=== PATIENT | male | born 2000 | race Two or more races ===

== ENCOUNTER 2021-04-13 09:18 | Emergency (ER) | payer MEDICAID ==
[~2021-04-13] VITALS: Ht 190.5 cm; Wt 83.6 kg
[~2021-04-13 09:18] MED LIST: ACET-2247 PO; CIPR250T6 PO; METR500 PO
[2021-04-13] MEDS ORDERED: ONDANSETRON HCL 4 MG/2 ML VIAL IVP ONE (10:00)
[2021-04-13] MEDS ORDERED: SODIUM CHLORIDE 0.9% 1,000 ML IV ONE (10:00)
[2021-04-13 10:17] LABS: BASOPHILS % (AUTO) 0.4 % (0.0-2.0); EOSINOPHILS % (AUTO) 0.2 % (1.0-6.0); HEMATOCRIT 45.8 % (41-53); HEMOGLOBIN 15.9 g/dL (13.5-17.5); LYMPHOCYTES # (AUTO) 1.6 K/uL (1.0-4.8); LYMPHOCYTES % (AUTO) 18.9 % (22.0-44.0); MEAN CORPUSCULAR HEMOGLOBIN 30.6 pg (26.0-34.0); MEAN CORPUSCULAR HGB CONC 34.7 G/dL (31.0-37.0); MEAN CORPUSCULAR VOLUME 88 fL (80-100); MONOCYTES # (AUTO) 0.4 K/uL (0.1-1.0); MONOCYTES % (AUTO) 4.8 % (2.0-9.0); NEUTROPHILS # (AUTO) 6.4 K/uL (1.8-7.7); NEUTROPHILS % (AUTO) 75.7 % (40.0-70.0); PLATELET COUNT (AUTO) 256 K/uL (150-450); RED BLOOD CELL COUNT(AUTO) 5.19 MIL/uL (4.50-5.90); RED CELL DISTRIBUTION WIDTH 12.5 % (11.5-14.5)
[2021-04-13 10:29] LABS: ANION GAP 17 mmol/L (8-16); CALCIUM, TOTAL 9.6 mg/dL (8.8-10.5); CARBON DIOXIDE 22 mmol/L (22-29); CHLORIDE 101 mmol/L (98-107); CREATININE 1.05 mg/dL (0.60-1.30); GLOMERULAR FILTR. RATE CALC > 60 mL/min (>60); GLUCOSE,RANDOM 101 mg/dL (70-110); POTASSIUM 4.2 mmol/L (3.5-5.1); SODIUM SERUM 140 mmol/L (136-145); UREA NITROGEN, BLOOD 15 mg/dL (7-18)
[2021-04-13 10:34] LABS: ALANINE AMINOTRANSFERASE 23 U/L (12-78); ALKALINE PHOSPHATASE 69 U/L (46-116); ASPARTATE AMINOTRANSFERASE 19 U/L (15-37); TOTAL PROTEIN, SERUM 8.5 g/dL (6.4-8.2)
[2021-04-13 10:43] VITALS: BP 137/78
== END 2021-04-13 10:49 | disposition home or self-care (01) ==
LOC: EMS 09:44
DX: R11.2 Nausea with vomiting, unspecified (principal); R10.84 Generalized abdominal pain
CPT/HCPCS: 36415; 80053; 85025; 96361; 96374; 99283; J2405

== ENCOUNTER 2021-04-15 14:38 | Emergency (ER) | payer MEDICAID ==
[~2021-04-15] VITALS: Ht 190.5 cm; Wt 83.6 kg
[2021-04-15 14:45] VITALS: BP 125/89
== END 2021-04-15 19:30 | disposition left against medical advice (07) ==
LOC: EMS 14:38
DX: R11.2 Nausea with vomiting, unspecified (principal); Z53.21 Procedure and treatment not carried out due to patient leaving prior to being seen by health care provider

== ENCOUNTER 2021-07-25 10:21 | Emergency (ER) | payer MEDICAID ==
[~2021-07-25] VITALS: Ht 188 cm; Wt 72.7 kg
[2021-07-25 10:52] LABS: BASOPHILS % (AUTO) 0.6 % (0.0-2.0); EOSINOPHILS % (AUTO) 0.1 % (1.0-6.0); HEMATOCRIT 46.1 % (41-53); HEMOGLOBIN 16.1 g/dL (13.5-17.5); LYMPHOCYTES # (AUTO) 1.4 K/uL (1.0-4.8); LYMPHOCYTES % (AUTO) 22.4 % (22.0-44.0); MEAN CORPUSCULAR HEMOGLOBIN 31.1 pg (26.0-34.0); MEAN CORPUSCULAR VOLUME 89 fL (80-100); MONOCYTES # (AUTO) 0.2 K/uL (0.1-1.0); MONOCYTES % (AUTO) 3.8 % (2.0-9.0); NEUTROPHILS # (AUTO) 4.5 K/uL (1.8-7.7); NEUTROPHILS % (AUTO) 73.1 % (40.0-70.0); PLATELET COUNT (AUTO) 254 K/uL (150-450); RED BLOOD CELL COUNT(AUTO) 5.18 MIL/uL (4.50-5.90); RED CELL DISTRIBUTION WIDTH 12.7 % (11.5-14.5)
[2021-07-25] MEDS ORDERED: SODIUM CHLORIDE 0.9% 1,000 ML IV ONE (11:00)
[2021-07-25] MEDS ORDERED: ONDANSETRON HCL 4 MG/2 ML VIAL IVP ONE (11:00)
[2021-07-25 11:02] LABS: ANION GAP 11 mmol/L (8-16); CALCIUM, TOTAL 10.3 mg/dL (8.8-10.5); CARBON DIOXIDE 28 mmol/L (22-29); CHLORIDE 104 mmol/L (98-107); CREATININE 1.12 mg/dL (0.60-1.30); GLOMERULAR FILTR. RATE CALC > 60 mL/min (>60); GLUCOSE,RANDOM 106 mg/dL (70-110); POTASSIUM 3.9 mmol/L (3.5-5.1); SODIUM SERUM 143 mmol/L (136-145); UREA NITROGEN, BLOOD 13 mg/dL (7-18)
[2021-07-25 11:47] LABS: ALANINE AMINOTRANSFERASE 24 U/L (12-78); ALBUMIN 4.9 g/dL (3.4-5.0); ALKALINE PHOSPHATASE 67 U/L (46-116); ASPARTATE AMINOTRANSFERASE 16 U/L (15-37); BILIRUBIN,TOTAL 0.7 mg/dL (0.1-1.0); CREATINE KINASE, TOTAL ONLY 124 U/L (39-308); LIPASE 109 U/L (73-393); TOTAL PROTEIN, SERUM 8.6 g/dL (6.4-8.2)
[2021-07-25 12:13] LABS: APPEARANCE,URINE CLEAR (CLEAR); GLUCOSE, URINE (UA) 100 mg/dL (NEGATIVE); KETONES,URINE >=80 mg/dL (NEGATIVE); LEUKOCYTE ESTERASE ,URINE NEGATIVE (NEGATIVE); NITRATE,URINE NEGATIVE (NEGATIVE); OCCULT BLOOD,URINE NEGATIVE (NEGATIVE); PH,URINE 6.5 (5.0-8.0); PROTEIN,URINE TRACE (NEGATIVE); UROBILINOGEN,URINE 0.2 mg/dL (<=1.0)
[2021-07-25 12:16] LABS: BILIRUBIN,URINE PRELIM. POSITIVE (NEGATIVE)
[2021-07-25 12:18] LABS: BACTERIA,URINE None Seen /HPF (None Seen); RBC,URINE 0-2 /HPF (0-2); WBC,URINE None Seen /HPF (0-5)
[2021-07-25 12:52] LABS: COVID AG,FIA SOURCE NASOPHARYNGEAL
[2021-07-25 13:23] VITALS: BP 106/77
== END 2021-07-25 13:26 | disposition home or self-care (01) ==
LOC: EMS 10:24
DX: R11.2 Nausea with vomiting, unspecified (principal); F12.90 Cannabis use, unspecified, uncomplicated; Z20.822 Contact with and (suspected) exposure to COVID-19
CPT/HCPCS: 36415; 80053; 81001; 82550; 83690; 83735; 85025; 87426; 96361; 96374; 99285; J2405; U0003

== ENCOUNTER 2022-04-25 15:43 | Emergency (ER) | payer MEDICAID ==
[~2022-04-25] VITALS: Ht 193 cm; Wt 83.2 kg
[2022-04-25 15:46] VITALS: BP 132/83
[2022-04-25 16:22] LABS: COVID AG,FIA SOURCE NASAL SWAB
[2022-04-25 16:48] LABS: INFLUENZA TYPE A NEGATIVE FOR TYPE A (NEGATIVE); INFLUENZA TYPE B NEGATIVE FOR TYPE B (NEGATIVE)
[2022-04-25] MEDS ORDERED: ACETAMINOPHEN 500 MG TABLET PO ONE (17:00)
== END 2022-04-25 17:22 | disposition home or self-care (01) ==
LOC: EMS 15:48
DX: U07.1 COVID-19 (principal); R50.9 Fever, unspecified; R51.9 Headache, unspecified; R00.0 Tachycardia, unspecified; F12.90 Cannabis use, unspecified, uncomplicated; Z98.890 Other specified postprocedural states
CPT/HCPCS: 87804; 99283

== ENCOUNTER 2022-08-04 17:55 | Emergency (ER) | payer SELFPAY ==
[~2022-08-04] VITALS: Ht 190.5 cm; Wt 77.3 kg
[2022-08-04 18:14] LABS: COVID AG,FIA SOURCE NASOPHARYNGEAL
[2022-08-04 18:32] LABS: RAPID GROUP A STREP NEGATIVE (NEGATIVE)
[2022-08-04 18:40] LABS: INFLUENZA TYPE B NEGATIVE FOR TYPE B (NEGATIVE)
[2022-08-04 18:49] LABS: INFLUENZA TYPE A POSITIVE FOR TYPE A (NEGATIVE)
[2022-08-04] MEDS ORDERED: OSEL75 PO (19:00)
[2022-08-04 20:31] VITALS: BP 126/74
== END 2022-08-04 20:34 | disposition home or self-care (01) ==
LOC: EMS 18:04
DX: J10.1 Influenza due to other identified influenza virus with other respiratory manifestations (principal); F12.90 Cannabis use, unspecified, uncomplicated; Z90.49 Acquired absence of other specified parts of digestive tract; Z20.822 Contact with and (suspected) exposure to COVID-19
CPT/HCPCS: 87430; 87804; 99283

== ENCOUNTER 2022-10-04 18:06 | Emergency (ER) | payer BC ==
[~2022-10-04] VITALS: Ht 185.4 cm; Wt 77.3 kg
[~2022-10-04 18:06] MED LIST changes: -ACET-2247 PO; -CIPR250T6 PO; -METR500 PO; +OSEL75 PO
[2022-10-04 18:20] LABS: COVID AG,FIA SOURCE NASAL SWAB
[2022-10-04 18:50] LABS: INFLUENZA TYPE A NEGATIVE FOR TYPE A (NEGATIVE); INFLUENZA TYPE B NEGATIVE FOR TYPE B (NEGATIVE)
[2022-10-04 19:30] VITALS: BP 125/79
[2022-10-04] MEDS ORDERED: IBUP-1554 PO (19:32)
[2022-10-04] MEDS ORDERED: GUAIFDM PO (19:32)
[2022-10-04] MEDS ORDERED: ACET-66 PO (19:32)
== END 2022-10-04 20:05 | disposition home or self-care (01) ==
LOC: EMS 18:07
DX: J20.9 Acute bronchitis, unspecified (principal); J06.9 Acute upper respiratory infection, unspecified; F12.90 Cannabis use, unspecified, uncomplicated; Z90.49 Acquired absence of other specified parts of digestive tract; Z20.822 Contact with and (suspected) exposure to COVID-19
CPT/HCPCS: 87804; 99283